=== PATIENT | male | born 1960 | race Caucasian/White ===

== ENCOUNTER 2016-04-15 04:52 | Observation (INO) ==
[2016-04-15] MEDS ORDERED: diphenhydrAMINE 50 MG/ML VIAL IV ONE (05:35)
[2016-04-15] MEDS ORDERED: LACTATED RINGERS 1,000 ML IV ONE (05:35)
[2016-04-15] MEDS ORDERED: ONDANSETRON 4 MG/2 ML VIAL IV ONE ×2 (05:35→15:30)
[2016-04-15] MEDS ORDERED: PROMETHAZINE 25 MG/ML VIAL IV ONE (05:35)
[2016-04-15] MEDS ORDERED: PANTOPRAZOLE 40 MG VIAL IV ONE (05:35)
--- NOTE | 2016-04-15 05:35 | Emergency Department Note ---
Abdominal Pain HPI - General Chief Complaint: Abdominal Pain Stated Complaint: abd. pain Time Seen by Provider: 04/15/16 05:32 Source: patient Mode of arrival: ambulatory - History of Present Illness HPI Narrative: Patient seen here earlier with normal, labs, diagnosis having acute gastritis. Return 0 this morning with crampy abdominal pain in the same area, recurrence of his pain with some nausea but no vomiting. No fevers, no chills, no chest pain, no shortness of breath, no flank pain. He has been well otherwise. Tried eating something at home, this did not go well. Seem to trigger his pain again. MD Complaint: abdominal pain - Related Data Previous Rx's Medication Instructions Recorded Methocarbamol [Robaxin-750] 750 mg PO Q8HP PRN #30 tablet 03/06/16 Etodolac [Lodine] 400 mg PO BIDP PRN #20 tablet 03/07/16 Omeprazole [PriLOSEC] 20 mg PO ACB #30 capsule 04/11/16 Allergies Allergy/AdvReac Type Severity Reaction Status Date / Time No Known Drug Allergies Allergy Verified 03/06/16 10:57 Review of Systems All systems ED: reviewed and negative except as stated. Constitutional: Denies: fever, chills Eyes: Reports: as per HPI ENT ED: Denies: ear pain Abdominal Pain PMH - Past Medical History Medical history: Reports: non-contributory, other (History of back pain) Surgical history ED: Reports: non-contributory Psychiatric history: Reports: anxiety, panic disorder Family history: Reports: other (both parents lived into their 90s) - Social History Smoking status: Current every day smoker Alcohol use: Reports: None, Heavy (Patient states he uses alcohol on occasion however he just called and asked for a note to not have to go to his DUI class because he states he can't sit there for 2 hours straight.) Drug use: Reports: unknown Physical Exam - General Limitations: no limitations General appearance: alert, in distress - Head Head exam: atraumatic, normocephalic - Eye Eye exam: Present: normal appearance, PERRL - ENT ENT exam: normal exam, normal oropharynx, mucous membranes moist, TM's normal bilaterally - Neck Neck exam: Present: normal inspection, full ROM - Chest Chest inspection: Present: normal inspection - Respiratory Respiratory exam: Present: normal lung sounds bilaterally. Absent: respiratory distress - Cardiovascular Cardiovascular exam: Present: regular rate, normal rhythm - Abdominal Exam Abdominal exam: Present: soft, tenderness, guarding, diminished bowel sounds. Absent: distention Abdominal tenderness: Present: epigastrium, moderate - exam: Present: normal inspection - Extremities Exam Extremities exam: Present: normal inspection - Back Exam Back exam: Present: normal inspection, full ROM. Absent: CVA tenderness (R), CVA tenderness (L) - Neurological Exam Neurological exam: Present: alert, oriented X3, CN II-XII intact - Psychiatric Psychiatric exam: Present: normal affect, normal mood - Skin Skin exam: Present: warm, dry, intact Course - Reevaluation(s) Reevaluation #1: Patient given IV fluids, we repeated his labs and sure enough, his liver enzymes jumped up. We thus, did an ultrasound of his gallbladder and it turns out he has multiple gallstones, signs of cholecystitis as well. This is per radiology wet read Vital Signs Temperature 97.1 F L 04/15/16 04:53 Pulse Rate 93 H 04/15/16 04:53 Respiratory Rate 20 04/15/16 04:53 Blood Pressure 132/98 04/15/16 04:53 Pulse Oximetry (%) 100 04/15/16 04:53 Temperature 97.1 F L 04/15/16 04:53 Pulse Rate 86 04/15/16 07:37 Respiratory Rate 20 04/15/16 07:37 Blood Pressure 132/98 04/15/16 07:37 Pulse Oximetry (%) 98 04/15/16 07:37 Abdominal Pain - [facility] Narrative Medical decision making narrative: mpression is acute cholecystitis. Abdominal pain.. He was given IV fluids, pain medications pain, did settle down in the ED, at this point, he will be admitted, discussed with Dr. Castellano - Lab Data Result diagrams: 04/15/16 05:45 04/15/16 05:45 Lab Results 04/15/16 04/15/16 04/15/16 Range/Units 05:44 05:44 05:45 WBC 9.1 (4.5-11.0) K/mcL RBC 5.20 (4.50-5.90) M/mcL Hgb 15.9 (13.5-16.5) g/dL Hct 48.7 (41.0-55.0) % MCV 93.7 (80.0-100.0) fL MCH 30.7 (26.0-34.0) pg MCHC 32.7 (31.0-36.0) g/dL RDW 13.4 (11.5-14.5) % Plt Count 290 (140-440) K/mcL MPV 8.8 (7.4-10.4) fL Gran % 63.6 (38.0-78.0) % Lymph % (Auto) 24.7 (15.5-49.0) % [place] % (Auto) 9.0 (1.0-9.0) % Eos % (Auto) 2.3 (0.0-7.0) % Baso % (Auto) 0.4 (0.0-2.0) % Gran # 5.8 (1.8-8.0) K/mcL Lymph # 2.3 (1.5-4.8) K/mcL [place] # 0.8 (0.1-0.9) K/mcL Eos # 0.2 (0.0-0.7) K/mcL Baso # 0 (0.0-0.3) K/mcL Sodium (133-145) mmol/L Potassium (3.3-5.1) mmol/L Chloride (96-108) mmol/L Carbon Dioxide (22-30) mmol/L Anion Gap (8-16) BUN (6-20) mg/dl Creatinine (0.7-1.2) mg/dl GFR Calculation Glucose (70-105) mg/dL Calcium (8.6-10.4) mg/dl Total Bilirubin (0.0-1.0) mg/dL AST (0-37) U/l ALT (0-40) U/l Alkaline Phosphatase (39-117) U/L Total Protein (5.9-8.4) gm/dL Albumin (3.2-5.2) gm/dL Globulin (2.2-3.7) gm/dL Albumin/Globulin Ratio (1.0-2.3) Lipase 40 (7-60) U/L Hepatitis A IgM Ab Non reactive (NEGATIVE) Hep Bs Antigen Negative (NEGATIVE) Hep B Core IgM Ab Non reactive (NEGATIVE) Hepatitis C Antibody Non reactive (NEGATIVE) 04/15/16 Range/Units 05:45 WBC (4.5-11.0) K/mcL RBC (4.50-5.90) M/mcL Hgb (13.5-16.5) g/dL Hct (41.0-55.0) % MCV (80.0-100.0) fL MCH (26.0-34.0) pg MCHC (31.0-36.0) g/dL RDW (11.5-14.5) % Plt Count (140-440) K/mcL MPV (7.4-10.4) fL Gran % (38.0-78.0) % Lymph % (Auto) (15.5-49.0) % [place] % (Auto) (1.0-9.0) % Eos % (Auto) (0.0-7.0) % Baso % (Auto) (0.0-2.0) % Gran # (1.8-8.0) K/mcL Lymph # (1.5-4.8) K/mcL [place] # (0.1-0.9) K/mcL Eos # (0.0-0.7) K/mcL Baso # (0.0-0.3) K/mcL Sodium 142 (133-145) mmol/L Potassium 3.9 (3.3-5.1) mmol/L Chloride 100 (96-108) mmol/L Carbon Dioxide 29 (22-30) mmol/L Anion Gap 13.0 (8-16) BUN 11 (6-20) mg/dl Creatinine 1.2 (0.7-1.2) mg/dl GFR Calculation 68 Glucose 136 H (70-105) mg/dL Calcium 8.8 (8.6-10.4) mg/dl Total Bilirubin 1.4 H (0.0-1.0) mg/dL AST 234 H (0-37) U/l ALT 231 H (0-40) U/l Alkaline Phosphatase 103 (39-117) U/L Total Protein 7.0 (5.9-8.4) gm/dL Albumin 4.3 (3.2-5.2) gm/dL Globulin 2.7 (2.2-3.7) gm/dL Albumin/Globulin Ratio 1.6 (1.0-2.3) Lipase (7-60) U/L Hepatitis A IgM Ab (NEGATIVE) Hep Bs Antigen (NEGATIVE) Hep B Core IgM Ab (NEGATIVE) Hepatitis C Antibody (NEGATIVE) Disposition Clinical Impression: Abdominal pain, Cholecystitis Disposition: Xfer As Inpt ([facility]) Condition: Good Referrals: Elia Lopez [Primary Care Provider] -
[2016-04-15 06:11] LABS: Basophils # (Auto) 0 K/mcL (0.0-0.3); Basophils % (Auto) 0.4 % (0.0-2.0); Eosinophils # (Auto) 0.2 K/mcL (0.0-0.7); Eosinophils % (Auto) 2.3 % (0.0-7.0); Granulocytes % (Auto) 63.6 % (38.0-78.0); Lymphocytes # (Auto) 2.3 K/mcL (1.5-4.8); Lymphocytes % (Auto) 24.7 % (15.5-49.0); Mean Cell Volume 93.7 fL (80.0-100.0); Mean Corpuscular HGB Conc 32.7 g/dL (31.0-36.0); Mean Corpuscular Hemoglobin 30.7 pg (26.0-34.0); Monocytes # (Auto) 0.8 K/mcL (0.1-0.9); Platelet Count 290 K/mcL (140-440); Red Cell Distribution Width 13.4 % (11.5-14.5)
--- NOTE | 2016-04-15 06:11 | XRay Report ---
CLINICAL INFORMATION: Severe abdominal pain for three days COMPARISON: Previous plain film examination dated 04/11/2016 FINDINGS: Gas and fecal material throughout the colon. No dilated gas-filled small bowel. Bowel gas pattern is unremarkable and nonspecific. No pneumoperitoneum. No biliary or portal venous gas. No pneumatosis. No pathologic calcifications. IMPRESSION: Negative abdomen Interpreted and Authenticated by: Kranthi Galvez 04/15/16
[2016-04-15 06:26] LABS: Lipase 40 U/L (7-60)
[2016-04-15 06:30] LABS: ALT/SGPT 231 U/l (0-40); Albumin 4.3 gm/dL (3.2-5.2); Albumin/Globulin Ratio 1.6 (1.0-2.3); Alkaline Phosphatase 103 U/L (39-117); Blood Urea Nitrogen 11 mg/dl (6-20)
[2016-04-15] MEDS: HYDROmorphone 2 MG/ML SYRINGE IV PRN ×5 (06:46→22:14)
[2016-04-15 07:31] LABS: Hepatitis A Antibody IgM NON REACTIVE (NEGATIVE); Hepatitis B Core IgM NON REACTIVE (NEGATIVE); Hepatitis B Surface Antigen NEGATIVE (NEGATIVE); Hepatitis C Virus Antibody NON REACTIVE (NEGATIVE)
--- NOTE | 2016-04-15 07:49 | Ultrasound Report ---
CLINICAL INFORMATION: Right upper quadrant abdominal pain. Elevated liver function tests. COMPARISON: None. FINDINGS: Gallbladder is abnormal. Gallbladder is filled with stones and sludge. Gallbladder wall is thickened. Tenderness could not be assessed as the patient was medicated. No dilated bile ducts. Common bile duct measures 4 mm. No detectable choledocholithiasis. Liver appears echogenic. No detectable focal abnormality. Hepatic steatosis is suspected. Pancreas is poorly visualized. IMPRESSION: 1. Cholelithiasis. 2. Thickened gallbladder wall consistent with cholecystitis. 3. No dilated bile ducts. Interpreted and Authenticated by: Kranthi Galvez 04/15/16
[2016-04-15] MEDS ORDERED: HYDROmorphone 2 MG/ML SYRINGE IV PRN ×2 (08:35→15:48)
[2016-04-15] MEDS ORDERED: PROMETHAZINE 25 MG/ML VIAL IV PRN ×2 (08:36→15:48)
[2016-04-15] MEDS ORDERED: CIPROFLOXACIN 400 MG/200 ML BAG IV ONE (08:36)
[2016-04-15] MEDS ORDERED: ONDANSETRON 4 MG/2 ML VIAL IV PRN ×3 (08:36→17:48)
[2016-04-15] MEDS: 0.9 % SODIUM CHLORIDE 1,000 ML IV SCH ×3 (09:10→19:29)
--- NOTE | 2016-04-15 14:00 | General Surg History&Physical ---
History of Present Illness Patient information: Note initiated : 04/15/16 at 1:57 pm Service Date, if different from initiated Date: [] Patient: Andrews Hutchinson a 55 y/o M admitted on 04/15/16 for Abd Pain. Chief Complaint: [] HPI: Mr. Hutchinson is a 55 year old male with history of recurrent abdomial pain dating back to 11 April. At that time he developed severe midepigastric pain with nausea and vomiting. He was seen in the emergency room treated and released. His pain recurred the next day. He had prescriptions but could not get them feel. He had more episodes of nausea and vomiting and midepigastric pain. He had abdominal x-rays done which was unremarkable. He was treated and released. He states that his pain returned before he arrived at home and since it became more severe and never resolved he came back to the emergency room where he was reevaluated. All of his pain was related to meals so he had an ultrasound done which shows inflamed thickened gallbladder with stones. He has had some slow elevation in his transaminases however his alkaline phosphatase and is normal. He has had a slight rise in his bilirubin. His common bile duct is only 4 mm. Patient has acute cholecystitis with cholelithiasis and he is counseled for laparoscopic cholecystectomy. Review of Systems All systems PM: reviewed and no additional remarkable complaints except as stated (atalisia has chronic low back pain from an on-the-job injury. Other than his history of present illness his review of system is negative) Past History Past medical history: chronic low back pain Past surgical history: no operations Past family history: father age 92 due to old age mother alive at age 86 healthy without disease Sister age 65 with diabetes mellitus Past social history: unemployed and disabled due to on the job injury Tobacco--mokes 5-10 cigarettes per day Alcohol use--none Drug use--none Medications and Allergies Allergies Allergy/AdvReac Type Severity Reaction Status Date / Time No Known Drug Allergies Allergy Verified 03/06/16 10:57 Exam Temp Pulse Resp BP Pulse Ox 98.1 F 77 16 94/59 92 04/15/16 12:33 04/15/16 12:33 04/15/16 12:33 04/15/16 12:33 04/15/16 12:33 - General physical appearance well developed, well nourished, no distress - Eyes PERRL, normal ocular movement - ENT normal pinna, normal nares, normal mucosa, no hearing loss, no congestion - Head Head exam IM: Present: atraumatic, normocephalic - Neck no masses, no bruits, trachea midline, no lymphadectomy, no venous distension - Cardiovascular Cardiovascular exam IM: Present: normal rate and rhythm - Respiratory normal expansion, normal respiratory effort, clear to percussion, clear to auscultation - Abdomen Abdomen: Present: soft, tender (nondistended with hypoactive bowel sounds; tenderness with fullness in epigastrium and right upper quadrant), bowel sounds Hernia: Present: none - Integumentary Present: no rash, no growths, no abnormal pigmentation - Neurologic Present: normal coordination, normal sensation - Musculoskeletal Present: normal gait, normal posture - Psychiatric Present: oriented to time, oriented to person, oriented to place, speech is normal, memory intact Assessment and Plan (1) Cholecystitis, acute with cholelithiasis atient is counseled for laparoscopic cholecystectomy. This will be done as soon as time and space available. Status: Acute
--- NOTE | 2016-04-15 15:06 | XRay Report ---
CLINICAL INFORMATION: Preoperative evaluation. Smoking history. TECHNIQUE: Upright AP chest x-ray COMPARISON: 11/09/2015 FINDINGS: No focal pulmonary parenchymal infiltrate or mass. Heart size and vascularity are normal. No pulmonary congestion. No pulmonary edema. Felicia and mediastinum are negative. No pleural fluid. No interval change. IMPRESSION: Negative AP chest x-ray Interpreted and Authenticated by: Kranthi Galvez 04/15/16
[2016-04-15] MEDS ORDERED: ROCURONIUM 10 MG/ML ML IV ONE (15:30)
[2016-04-15] MEDS ORDERED: LIDOCAINE HCL/PF 100 MG/5 ML SYRINGE IV ONE (15:30)
[2016-04-15] MEDS ORDERED: PROPOFOL 200 MG/20 ML VIAL IV ONE (15:30)
[2016-04-15] MEDS ORDERED: DEXAMETHASONE 10 MG/ML VIAL IV ONE (15:30)
[2016-04-15] MEDS ORDERED: MIDAZOLAM 5 MG/5 ML VIAL IV ONE (15:30)
[2016-04-15] MEDS ORDERED: fentaNYL 250 MCG/5 ML VIAL IV ONE (15:30)
[2016-04-15] MEDS ORDERED: LACTATED RINGERS 250 ML IV PRN (15:48)
[2016-04-15] MEDS ORDERED: METOCLOPRAMIDE 10 MG/2 ML VIAL IV PRN (15:48)
[2016-04-15] MEDS ORDERED: METHOCARBAMOL 1,000 MG/10 ML VIAL IV PRN (15:48)
[2016-04-15] MEDS ORDERED: IPRATROPIUM/ALBUTEROL 3 ML AMPUL.NEB NEB PRN (15:48)
[2016-04-15] MEDS ORDERED: diphenhydrAMINE 50 MG/ML VIAL IV PRN (15:48)
[2016-04-15] MEDS ORDERED: FLUMAZENIL 0.1 MG/ML ML IV PRN (15:48)
[2016-04-15] MEDS ORDERED: ePHEDrine 50 MG/ML AMPUL IV PRN (15:48)
[2016-04-15] MEDS ORDERED: BENZOCAINE/MENTHOL 1 LOZENGE PO PRN (15:48)
[2016-04-15] MEDS ORDERED: MEPERIDINE 25 MG/ML SYRINGE IV PRN (15:48)
[2016-04-15] MEDS ORDERED: NALOXONE HCL 0.4 MG/ML VIAL IV PRN (15:48)
[2016-04-15] MEDS ORDERED: LACTATED RINGERS 1,000 ML IV SCH (16:00)
--- NOTE | 2016-04-15 16:28 | Brief Operative Note ---
Date of procedure: 04/15/16 Pre-op diagnosis: ACUTE CHOLECYSTITIS WITH CHOLELITHIASIS Post-op diagnosis: same Procedure: LAPAROSCOPIC CHOLECYSTECTOMY Grafts/Implants: No Anesthesia: GETA Findings: ACUTELY INFLAMED ,EDEMATOUS GALLBLADDER Complications: none Surgeon: Bonnie Castellano Estimated blood loss (cc): 10 Specimens Removed/Pathology: other (GALLBLADDER) Condition: stable Disposition: PACU
[2016-04-15] MEDS ORDERED: NITROGLYCERIN 0.4 MG TAB.SUBL SL PRN ×2 (16:33→17:48)
[2016-04-15] MEDS ORDERED: METHOCARBAMOL 750 MG TABLET PO PRN ×2 (16:39→17:55)
[2016-04-15] MEDS: fentaNYL 100 MCG/2 ML VIAL IV PRN ×4 (17:07→17:20)
[2016-04-15] MEDS: oxyCODONE/APAP 5/325MG TABLET PO PRN (19:16)
[2016-04-15] MEDS ORDERED: NICOTINE 21 MG PATCH ONE (19:42)
[2016-04-16] MEDS: oxyCODONE/APAP 5/325MG TABLET PO PRN ×4 (00:31→14:01)
[2016-04-16] MEDS: HYDROmorphone 2 MG/ML SYRINGE IV PRN ×4 (02:39→12:29)
[2016-04-16] MEDS: 0.9 % SODIUM CHLORIDE 1,000 ML IV SCH ×2 (02:40→12:29)
[2016-04-16] MEDS: PROMETHAZINE 25 MG/ML VIAL IV PRN ×2 (03:25→10:38)
[2016-04-16] MEDS ORDERED: PANTOPRAZOLE 40 MG TABLET PO SCH ×2 (07:30)
[2016-04-16] MEDS ORDERED: buPROPion 150 MG TAB.XL.24H PO SCH ×2 (09:00)
[2016-04-16] MEDS ORDERED: LEVOFLOXACIN 750 MG/150 ML BAG IV SCH (09:00)
[2016-04-16] MEDS ORDERED: NICOTINE 21 MG PATCH TOPICAL SCH ×2 (10:00)
[2016-04-16 12:57] LABS: Basophils # (Auto) 0 K/mcL (0.0-0.3); Basophils % (Auto) 0.2 % (0.0-2.0); Eosinophils # (Auto) 0 K/mcL (0.0-0.7); Eosinophils % (Auto) 0.5 % (0.0-7.0); Granulocytes % (Auto) 70.1 % (38.0-78.0); Lymphocytes # (Auto) 1.7 K/mcL (1.5-4.8); Lymphocytes % (Auto) 19.7 % (15.5-49.0); Mean Cell Volume 92.3 fL (80.0-100.0); Mean Corpuscular HGB Conc 33.6 g/dL (31.0-36.0); Monocytes # (Auto) 0.8 K/mcL (0.1-0.9); Monocytes % (Auto) 9.5 % (1.0-9.0); Platelet Count 241 K/mcL (140-440); RBC 4.18 M/mcL (4.50-5.90); Red Cell Distribution Width 13.5 % (11.5-14.5)
--- NOTE | 2016-04-16 14:07 | General Surgery Progress Note ---
Subjective Patient reports: feels better, still having pain, pain is less, tolerating liquids well, flatus, bowel movement Narrative: Note initiated : 04/16/16 at 2:05 pm Service Date, if different from initiated Date: [] Patient: Andrews Hutchinson 55 y/o M admitted on 04/15/16 for Abd Pain/ Cholecystitis with Cholelithiasis. Chief Complaint: [PATIENT IS STABLE EXCEPT FOR MILD ABDOMINAL DISCOMFORT AND HIS OPERATIVE SITE. hE HAD NAUSEA EARLIER TODAY BUT THAT HAS RESOLVED. hE IS AMBULATING WITHOUT DIFFICULTY. hE HAS NO RESPIRATORY DIFFICULTY. hE HAS TOLERATED DIET WITHOUT VOMITING. hE IS STABLE FOR DISCHARGE.] Objective Temp Pulse Resp BP Pulse Ox 97.3 F L 71 16 101/66 96 04/16/16 11:06 04/16/16 11:06 04/16/16 11:06 04/16/16 11:06 04/16/16 11:06 - Additional Data Intake & Output - Last 24 hours: Intake & Output 04/14/16 04/15/16 04/16/16 04/17/16 05:59 05:59 05:59 05:59 Intake Total 4000 / 4600 1710 / 1710 Output Total 410 / 410 2425 / 2425 Balance 3590 / 4190 -715 / -715 Weight 190 lb - General physical appearance well developed, well nourished, moderate distress, moderate pain - ENT no congestion - Neck no venous distension - Respiratory normal expansion, clear to auscultation - Cardiovascular Cardiovascular exam: Present: normal rate and rhythm, RRR, +S1, +S2 - Abdomen tender, bowel sounds, distended (MINIMAL DISTENTION WITH GOOD ACTIVE BOWEL SOUNDS) - Integumentary no rash, no growths, no abnormal pigmentation - Neurologic normal coordination, normal sensation - Musculoskeletal normal gait, normal posture - Psychiatric oriented to time, oriented to person, oriented to place, speech is normal, memory intact - Labs 04/16/16 12:20 04/15/16 05:45 Medical - PN: A/P - Time Spent With Patient Total time spent is greater than 50% in coordination of care (as documented) at patient's floor/unit and/or counseling patient: (1) Cholecystitis, acute with cholelithiasis Status: Acute Assessment and plan: PATIENT HAS ADEQUATEL RECOVERED AND IS STABLE FOR DISCHARGE Current Visit: Yes
--- NOTE | 2016-04-16 14:30 | Surgical Pathology Report ---
HISTOLOGY SPECIMEN MICROSCOPIC DIAGNOSIS GALLBLADDER, CHOLECYSTECTOMY: -- MARKED SUBACUTE AND CHRONIC CHOLECYSTITIS WITH CHOLELITHIASIS. -- THREE LYMPH NODES WITH REACTIVE CHANGE AND FOCAL FATTY REPLACEMENT. (ACP:adj) PROCEDURAL IMPRESSION Cholecystitis. GROSS DESCRIPTION Received in formalin labeled with the patient information, is a purple-ryan gallbladder with an overlying layer of fat. It is 9.2 x 3.7 x 2.2 cm. There are multiple metal clips identified. The margin is stapled. There is a 1.5 cm staple line. The specimen is filled with red viscous fluid and contains multiple stones ranging in size from 0.7 to 1.4 cm in greatest dimension. The mucosa is pink-ryan and striated. Near the stapled margin there are three purple-ryan firm areas. They are 0.8, 1.0 and 0.9 cm in greatest dimensions. Cut surfaces are purple-ryan. One of these is trisected and the other is submitted intact. The largest one is inked black, sectioned and entirely submitted. Kiln Remover sections submitted in two cassettes. (SCB:adj) Electronically Signed by: Vikram Melendez M.D.
--- NOTE | 2016-04-23 09:45 | Operative Note ---
DATE OF OPERATION: 04/15/2016 PREOPERATIVE DIAGNOSIS: Acute cholecystitis with cholelithiasis. POSTOPERATIVE DIAGNOSIS: Acute cholecystitis with cholelithiasis. PROCEDURE: Laparoscopic cholecystectomy. SURGEON: Bonnie Castellano MD. FINDINGS: Acutely inflamed, edematous gallbladder with stones. DESCRIPTION OF PROCEDURE: Under general anesthesia, the patient's abdomen was prepped and draped in the sterile field. Supraumbilical incision was made. Veress needle was inserted uneventfully. Abdomen was insufflated with 2.5 L of CO2. A 12 mm port was placed. Laparoscope was placed. An edematous, inflamed gallbladder was noted. Under videoscopic guidance, a 12 mm port and two 5 mm ports were placed in the right subcostal region. The gallbladder was grasped and positioned. Cystic duct was dissected back to the gallbladder and down to its junction with the common bile duct. Cystic artery branch was dissected onto the wall of the gallbladder. Cystic duct was clipped with five clips and divided close to the gallbladder. The cystic artery branches were clipped with three clips each and divided. Gallbladder was then from the infrahepatic bed using blunt dissection and electrocautery. It was placed in an Endopouch and retrieved. There was mild bleeding which was controlled with electrocautery. Final irrigation fluid was clear. There was no bile leak. CO2 was allowed to escape from the abdomen, and the ports were removed. Fascia at the umbilicus was closed with 0 Vicryl. Skin incisions were closed with cecy. The patient tolerated the procedure well. Dressings were placed. He was awakened from anesthesia uneventfully, transferred to a bed and taken to the postanesthetic care unit in stable, satisfactory condition. LCS:cyrus Job ID: [id number] Doc ID: [id number] Bonnie Castellano M.D.
== END 2016-04-16 15:20 | disposition home or self-care (01) ==
LOC: MEDSUR 04:52 → ED 04:52 → MEDSUR 11:15
PROVIDERS: ADMIT Family Medicine Adult Medicine; ATTEND Family Medicine Adult Medicine